=== PATIENT | female | born 1950 | race Caucasian/White ===

== ENCOUNTER 2016-05-29 20:02 | Inpatient (IN) ==
[2016-05-29] MEDS ORDERED: *HR* Heparin 5,000 UNIT/ML VIAL IVP PRN ×2 (22:59)
[2016-05-29] MEDS ORDERED: *HR* Promethazine 25 MG/ML VIAL IVP PRN (22:59)
[2016-05-29] MEDS ORDERED: *HR* Heparin 5,000 UNIT/ML VIAL IVP ONE (22:59)
[2016-05-29] MEDS ORDERED: Naloxone 0.4 MG/ML INJ IVP PRN (22:59)
[2016-05-29] MEDS ORDERED: Acetaminophen 325 MG TABLET PO PRN (22:59)
[2016-05-29] MEDS ORDERED: *HR* Morphine 2 MG/ML SYRINGE IVP PRN (22:59)
[2016-05-29] MEDS ORDERED: Heparin 25,000 UNIT/500 ML D5W 25,000 UNIT/500 ML MLS IVC SCH (23:00)
[2016-05-29 23:01] LABS: Basophils # 0.1 K/mcL (0.0-0.2); Basophils % 0.5 %; Eosinophils # 0.2 K/mcL (0.0-0.6); Eosinophils % 1.1 %; Hematocrit 35.7 % (35.3-44.9); Hemoglobin 11.7 g/dL (11.5-15.4); Immature Granulocytes % 0.2 % (0-4); Lymphocytes # 3.1 K/mcL (0.6-4.6); Lymphocytes % 23.6 %; Mean Corpuscular HGB Conc 32.8 g/dL (31.6-35.5); Mean Corpuscular Hemoglobin 26.2 pg (28.0-33.3); Mean Platelet Volume 9.2 fL (9.4-12.4); Monocytes % 7.7 %; Neutrophils # 8.9 K/mcL (1.6-8.9); Platelet Count 292 K/mcL (140-400); Red Blood Count 4.46 M/mcL (3.82-4.97); Red Cell Distribution Width 16.3 % (11.5-14.5); Segmented Neutrophils % 66.9 %
[2016-05-29 23:06] LABS: INR 1.1
[2016-05-29] MEDS ORDERED: *HR* Dextrose 50 % in Water (Syg) 50 ML SYRINGE IVP PRN (23:06)
[2016-05-29] MEDS ORDERED: D5% in Water 1,000 ML IV PRN (23:06)
[2016-05-29] MEDS ORDERED: Dextrose Gel 15 GM PO PRN ×2 (23:06)
[2016-05-29 23:12] LABS: Calcium 9.2 mg/dL (8.6-10.8); Potassium 4.2 mEq/L (3.5-4.5)
[2016-05-29] MEDS ORDERED: Nitroglycerin 25 MG/250 ML INFUS..BTL IVC SCH (23:15)
--- NOTE | 2016-05-29 23:16 | Internal Med History&Physical ---
Date of Encounter: 05/29/16 Time of Encounter: 22:20 Assessment and Plan (1) NSTEMI (non-ST elevated myocardial infarction) Current visit: Yes Status: Acute 1. Patient currently chest-pain free. 2. EKG much improved now compared to original EKG from [facility]. 3. I will continue patient on IV heparin gtt, Nitroglycerin gtt, aspirin, plavix, STATIN, BB (if BP and HR tolerate), and Morphine PRN. 4. Hold CHRISTIAN due to MATIAS. 5. I just discussed case with Interventional Cardiology (Dr. Hall ?sp), and he agrees with my plan of care. He recommends loading with aspirin and Plavix if not already done at [facility]. He recommends LHC in the morning. 6. Cardiology consulted. (2) IDDM (insulin dependent diabetes mellitus) Current visit: Yes Status: Chronic 1. Will keep npo for LHC. 2. Will use SSI for now and adjust insulin when medications verified and according to glucose levels. (3) Hypertension Current visit: Yes Status: Chronic 1. Will continue BB and adjust/resume home meds as appropriate. 2. Avoid CHRISTIAN for now due to MATIAS vs CKD. Qualifiers: Hypertension type: essential hypertension Qualified Code(s): I10 - Essential (primary) hypertension (4) DVT prophylaxis Current visit: Yes Status: Acute 1. On heparin drip. Internal Medicine - H&P: HPI Chief complaint: chest pain Admitted From: Hospital to Hospital Transfer Plans for Post Hospital Care: Home History of present illness: Ms. Finley is a 65 year old female who presents to [facility] in transfer from [facility] in [place]. She presented to ER there with complaints of chest pain and pressure which started earlier this afternoon. She was found to have a non-STEMI and request was made to transfer patient to [facility]. [facility] ER doctor contacted Dr. Pratt and requested patient transfer to [facility]. Upon arrival to the floor, I ordered some stat labs and EKG and saw the patient shortly after arrival. I reviewed her EKG and labs from [facility] and I was concerned about her presenting EKG at [facility]. On that EKG, she had some subtle ST elevation in leads II, III, and aVF and significant ST depression in leads V1 and V2 and V3. I was concerned about possible inferior STEMI. I then reviewed her stat EKG here, and her EKG here is unremarkable in appearance. In particular, there are no ST changes. She is currently chest pain-free and seems to have responded to treatment rendered at [facility]. Given that she is pain -free, I want to keep her nothing by mouth, continue heparin drip, start nitroglycerin drip, and order baseline cardiac medications including morphine for chest pain relief. Meanwhile, I will contact our artificial flowers dyer to discuss the case with him. I anticipate she will undergo left heart catheterization in the morning unless her condition worsens this evening. I explained this to patient and her brother, and they both voiced understanding and agreement with the plan. Cardiac risk factors include long-standing insulin-dependent diabetes, hypertension, and unknown family history. Patient was adopted, and she does not know her family history. Past Med Surg Social Fam HX - Past Medical History Attestation: Yes The following information was validated with the patient. Source: patient, old records reviewed Medical history: diabetes, hypertension Psychiatric history: no psych history - Past Surgical History Surgical History: hip replacement - Social History Smoking Status: Never smoker Alcohol use: none Drug use: none Current living situation: Home - Independent, Home Activity Level: Independent ambulation Recent Out of Country Travel Within the Last 8 Weeks: No - Family History Mother History Unknown: Yes Adopted: Yes Father History Unknown: Yes Adopted: Yes Internal Medicine - H&P: Meds Allergies No Known Allergies Allergy (Unverified 05/03/16 14:39) - Constitutional Constitutional: no chills, no fever(s), no night sweats - EENT Eyes: no blurry vision, no change in vision Ears: no ear pain, no tinnitus Nose, mouth and throat: no nasal congestion, no sinus pressure, no sore throat - Cardiovascular Cardiovascular ROS IM: chest pain, diaphoresis, dyspnea, no palpitations, no paroxysmal nocturnal dyspnea - Respiratory Respiratory: no cough, no hemoptysis, no chest congestion, no excessive phlegm production - Gastrointestinal Gastrointestinal: no abdominal pain, no diarrhea, no heartburn, no hematemesis, no hematochezia, no melena, no nausea, no vomiting - Genitourinary Genitourinary: no dysuria, no flank pain, no hematuria - Musculoskeletal Musculoskeletal ROS IM: no arthralgias, no back pain, no joint swelling - Integumentary Integumentary IM: no rash, no jaundice - Neurological Neurological ROS: no dizziness, no focal weakness, no frequent falls, no headache(s) - Psychiatric Psychiatric: no anxiety, no depression - Endocrine Endocrine IM: no cold intolerance, no heat intolerance, no polydipsia, no polyuria - Hematologic/Lymphatic Hematologic/Lymphatic: no easy bruising, no lymphadenopathy - Allergic/Immunologic Allergic/Immunologic: no wheezing, no GI upset with certain foods - Constitutional Vitals: Temp Pulse Resp BP Pulse Ox 97.4 F L 86 16 150/92 97 05/29/16 22:05 05/29/16 22:05 05/29/16 22:05 05/29/16 22:05 05/29/16 22:05 General appearance: Present: cooperative, A&O X 3, pleasant, no acute distress, answers questions appropriately - Head Head exam: Present: atraumatic, normal inspection - Expanded Head Exam Head exam expanded: Absent: abrasion, contusion, general tenderness - Eye Eye exam: Present: EOMI, normal appearance, PERRL. Absent: scleral icterus Pupils: Present: normal accommodation - ENT ENT exam: Present: mucous membranes dry, normal exam, normal oropharynx Additional comments: speech impediment - Neck Neck exam general surgery: Present: full ROM, supple. Absent: lymphadenopathy, nuchal rigidity, thyromegaly - Expanded Neck Exam Neck exam: Absent: carotid bruit - Respiratory Respiratory exam: Present: CTAB. Absent: accessory muscle use, chest wall tenderness, rales, respiratory distress, rhonchi, wheezes - Cardiovascular Cardiovascular exam: Present: RRR, +S1, +S2. Absent: diastolic murmur, JVD, systolic murmur - GI/Abdominal GI/Abdominal exam: Present: soft. Absent: guarding, hepatomegaly, mass, rebound , splenomegaly, tenderness - Extremities Exam Extremities exam: Present: full ROM, warm. Absent: calf tenderness, joint swelling, pedal edema, tenderness - Back Exam Back exam: Present: normal inspection. Absent: CVA tenderness (L), CVA tenderness (R) - Neurological Exam Neurological exam: Present: alert, CN II-XII intact, oriented X3, no focal deficits - Psychiatric Psychiatric exam: Present: normal affect, normal mood - Skin Skin exam: Present: dry, warm. Absent: petechiae, rash Internal Med - H&P Results - Labs CBC & Chem 7: 02/05/17 22:50 Labs: Short CBC 05/29/16 Range/Units 22:50 WBC 13.3 H D (4.3-11.1) K/mcL Hgb 11.7 (11.5-15.4) g/dL Hct 35.7 (35.3-44.9) % Plt Count 292 (140-400) K/mcL Neutrophils # 8.9 (1.6-8.9) K/mcL - EKG Data -: EKG Interpreted by Myself EKG shows normal: sinus rhythm - EKG Data Prior EKG available for review: yes When compared to previous EKG: there are significant changes EKG comments: 05/29/16 23:21 Initial EKG at [facility] showed some subtle ST elvation in II, III, and aVF with ST -T depression in V1-V3; repeat EKG here upon arrival showed no acute ST-T changes and was essentially normal other than borderline LAE. - VTE Reasons for not Prescribing Prophylaxis: Not indicated-Anticoagulated or INR therapeutic
[2016-05-29 23:25] LABS: Activated Partial Thrombo Time 138.2 Seconds (26.0-36.0)
[2016-05-29 23:28] LABS: Hemoglobin A1C 9.7 %
[2016-05-29 23:38] LABS: Heparin anti-factor XA UFH 0.74 IU/mL (0.30-0.70)
[2016-05-30] MEDS ORDERED: Aspirin 81 MG TAB.CHEW PO ONE (00:18)
[2016-05-30] MEDS: Insulin LISPRO 300 UNITS/3 ML VIAL SQ SCH ×4 (00:31→18:17)
[2016-05-30] MEDS: 0.9 % Sodium Chloride 1,000 ML IVC SCH ×3 (00:35→22:03)
[2016-05-30 01:19] LABS: Basophils # 0.1 K/mcL (0.0-0.2); Basophils % 0.5 %; Eosinophils # 0.2 K/mcL (0.0-0.6); Eosinophils % 1.4 %; Hematocrit 33.8 % (35.3-44.9); Hemoglobin 11.2 g/dL (11.5-15.4); Immature Granulocytes % 0.2 % (0-4); Lymphocytes # 3.2 K/mcL (0.6-4.6); Lymphocytes % 25.2 %; Mean Corpuscular HGB Conc 33.1 g/dL (31.6-35.5); Mean Corpuscular Hemoglobin 26.5 pg (28.0-33.3); Mean Corpuscular Volume 80.1 fL (83.0-100.0); Mean Platelet Volume 9.4 fL (9.4-12.4); Monocytes # 0.8 K/mcL (0.0-1.3); Monocytes % 6.6 %; Neutrophils # 8.4 K/mcL (1.6-8.9); Platelet Count 267 K/mcL (140-400); Red Blood Count 4.22 M/mcL (3.82-4.97); Red Cell Distribution Width 16.6 % (11.5-14.5); Segmented Neutrophils % 66.1 %
[2016-05-30 01:25] LABS: INR 1.1; Prothrombin Time 11.8 Seconds (9.4-12.1)
[2016-05-30 01:36] LABS: Albumin 3.1 g/dL (3.5-5.0); Bilirubin,Total 0.5 mg/dL (0.2-1.2); Calcium 9.1 mg/dL (8.6-10.8); Chol/HDL Ratio 2.5 (0-4.9); Magnesium 1.2 mg/dL (1.6-2.6); Total Protein 6.1 g/dL (6.0-8.3)
[2016-05-30 01:41] LABS: Activated Partial Thrombo Time 122.9 Seconds (26.0-36.0)
[2016-05-30 01:47] LABS: Heparin anti-factor XA UFH 0.63 IU/mL (0.30-0.70)
[2016-05-30] MEDS: Insulin DETEMIR 100 UNIT/ML X5UNITS SQ SCH ×2 (02:26→22:03)
[2016-05-30] MEDS ORDERED: Magnesium Sulfate 2 GM in D5% in Water 100 ML IVPB ONE (02:53)
[2016-05-30] MEDS: Aspirin Enteric Coated 81 MG Tablet PO SCH (08:54)
--- NOTE | 2016-05-30 09:26 | Cardiology Consult Note ---
Date of Encounter: 05/30/16 Time of Encounter: 08:30 Assessment and Plan (1) NSTEMI (non-ST elevated myocardial infarction) Current Visit: Yes Status: Acute Per Cardiology: -Patient with elevated troponin of 6.16 and 7.8. Patient with bilateral shoulder , jaw, and chest pain. Currently chest pain free. Patient currently on nitroglycerin drip at 5mcg/min and heparin drip titrated to PTT. -Patient currently on asa, plavix, beta bryant, statin, heparin drip, and nitro drip. -Echocardiogram pending. No previous history of CAD or ischemic evaluation. -Plan for cardiac catheterization today. Discussed cath with patient and brother. All questions answered. Patient and brother agreeable for cardiac catheterization. -Further recommendations once cardiac catheterization complete. (2) Hypertension Current Visit: Yes Status: Chronic Per Cardiology -Patient with chronic hypertension. Patient states home medication is HCTZ. States compliance with home medications. -Patient currently on beta-bryant. BPs running 110-130s this admission. -More recommendations once cardiac catheterization complete. Qualifiers: Hypertension type: essential hypertension Qualified Code(s): I10 - Essential (primary) hypertension Discussion w patient/family: The assessment and plan as outlined above was discussed with the patient and/or family members who expressed understanding and agreement. All questions were answered. Thank you for involving us in the care of your patient. Please call with any questions. History of Present Illness Consult date: 05/30/16 Requesting physician: Evans Stoll Consult reason: NSTEMI Chief complaint: Chest pain History of present illness: Ms. Finley is a 65 year old female who was at home at rest when she experienced sudden onset of bilateral shoulder blade, jaw, and chest pain. Patient states her friend took her to the emergency room at [facility]. Patient states ER gave her a medication under her tongue that relieved pain. Patient states nothing made the pain worse. States pain was not worsened by walking to car or walking into the emergency room. Patient had elevated troponin in ER at [facility] and per patient and family request she was transferred here to [place]. Patient denies shoulder blade, chest,or jaw pain since admission to [place]. Past Med Surg Social Fam HX - Past Medical History Medical history: diabetes, hypertension Psychiatric history: no psych history - Past Surgical History Surgical History: hip replacement - Social History Smoking Status: Never smoker Alcohol use: none Drug use: none - Family History Mother History Unknown: Yes Adopted: Yes Father History Unknown: Yes Adopted: Yes Medications and Allergies Aspirin Enteric Coated [Aspirin EC] 81 mg PO DAILY 05/30/16 [History] Insulin ASPART [Novolog Flexpen] 4 unit SQ HS 05/30/16 [History] Insulin ASPART [Novolog Flexpen] 4 units SQ TIDAC 05/30/16 [History] Insulin Glargine,Hum.rec.anlog [Lantus Solostar] 14 unit SQ HS 05/30/16 [History ] Levothyroxine [Levothyroxine Sodium] 137 mcg PO DAILY 05/30/16 [History] Simvastatin [Zocor] 20 mg PO QPM 05/30/16 [History] Triamterene/HCTZ 37.5/25mg [Dyazide] 1 tab PO DAILY 05/30/16 [History] Allergies Penicillins Allergy (Verified 05/30/16 08:11) Rash All Systems Review: A 10-system review of systems was performed and is negative for pertinent findings except as documented above in the HPI. - Cardiovascular Cardiovascular: chest pain at rest, radiating jaw, neck or arm pain Physical Examination Vital Signs, Last 4 Hours Temp Pulse Resp BP Pulse Ox 05/30/16 08:00 97.5 F L 86 20 139/83 97 General: Conversant, No Apparent Distress HEENT: Atraumatic, Normocephaly, Mucus Membranes Moist Neck: No JVD Cardiac: Reg Rate and Rhythm, Normal S1 and S2 Lungs: Normal Breath Sounds Neuro: Alert and responsive Abdomen: Soft Skin: No rashes noted on visualized skin Musculoskeletal: No Chest Wall Tenderness Extremities: No Clubbing, No Cyanosis, Normal Pulses, Other (mild non-pitting edema noted to bilateral lower extremities. ) Results 05/30/16 01:08 05/30/16 01:08 Lab Results 05/29/16 05/29/16 05/29/16 22:50 22:50 22:50 WBC 13.3 H D Hgb 11.7 Hct 35.7 Plt Count 292 INR APTT Sodium 137 Potassium 4.2 Chloride 106 Carbon Dioxide 20 BUN 38 H Creatinine 1.34 H Glucose 370 H Calcium 9.2 Magnesium Total Bilirubin AST ALT Alkaline Phosphatase Troponin I 6.16 H* 05/29/16 05/30/16 05/30/16 22:50 01:08 01:08 WBC 12.7 H Hgb 11.2 L Hct 33.8 L Plt Count 267 INR 1.1 1.1 APTT 138.2 H* 122.9 H* Sodium Potassium Chloride Carbon Dioxide BUN Creatinine Glucose Calcium Magnesium Total Bilirubin AST ALT Alkaline Phosphatase Troponin I 05/30/16 05/30/16 01:08 01:08 WBC Hgb Hct Plt Count INR APTT Sodium 136 Potassium 4.0 Chloride 105 Carbon Dioxide 21 BUN 37 H Creatinine 1.42 H Glucose 518 H* Calcium 9.1 Magnesium 1.2 L Total Bilirubin 0.5 AST 53 H ALT 20 Alkaline Phosphatase 87 Troponin I 7.83 H* - Imaging and Cardiology Chest Xray: report reviewed Echo: pending Cardiac cath: pending - EKG Interpretation EKG results cardiology: normal ECG, sinus rhythm, other (Reviewed ECG from [facility]. Mild ST depression in leads V1 and V2.) Consult Discharge Plan - Plan Referrals: Shoshana Eng MD [Primary Care Provider] -
[2016-05-30] MEDS ORDERED: Heparin 1,000 UNITS/500 mL NS 500 ML ONE (10:38)
[2016-05-30] MEDS ORDERED: Nitroglycerin 1,000 MCG/10 ML VIAL IV ONE (10:38)
[2016-05-30] MEDS ORDERED: 0.9 % Sodium Chloride 1,000 ML ONE ×2 (10:38→11:38)
[2016-05-30] MEDS ORDERED: *HR* Heparin 10,000 UNIT/10 ML VIAL ONE (10:38)
[2016-05-30] MEDS ORDERED: *HR* Midazolam HCl 2 MG/2 ML VIAL ONE (11:37)
[2016-05-30] MEDS ORDERED: *HR* FentaNYL (PF) 100 MCG/2 ML VIAL ONE (11:37)
--- NOTE | 2016-05-30 11:49 | Pre-Sedation Evaluation ---
Pre-sedation evaluation - Pre-sedation checklist Date of procedure: 05/30/16 Procedure: heart cath Recent Vitals: Last Vital Signs Temp 97.5 F L 05/30/16 08:00 Pulse 68 05/30/16 11:07 Resp 16 05/30/16 11:07 BP 134/78 05/30/16 11:07 Pulse Ox 100 05/30/16 11:07 H&P (including ROS) documented in medical record: Yes Previous reaction to sedatives/anesthetics: No Dietary Status: NPO after Midnight Dentition: No loose teeth or bridges Possible difficult airway: No ASA Classification *see protocol: CLASS III-Severe systemic disease Plan of Care: Pt appropriate candidate for procedure/moderate/conscious sedation , Risks/benefits of procedure/sedation discussed w/ patient/family, If not NPO; Risk of intake outweiged by necessity to perform procedure
[2016-05-30] MEDS ORDERED: *HR* Bivalirudin 250 MG VIAL IVC ONE (12:06)
[2016-05-30] MEDS ORDERED: Ondansetron 4 MG/2 ML VIAL IVP PRN (12:22)
[2016-05-30] MEDS ORDERED: Nitroglycerin 0.4 MG TAB.SUBL SL PRN (12:22)
--- NOTE | 2016-05-30 12:45 | Invasive Diagnostic Lab Proc ---
Name: Casi Finley September Date of Study: 05/30/2016 Date: 1950 Ht: 65.0in Medical Record#: [id number] Age: 65 Wt: 160.94lb Gender: Female BSA: 1.8 Order #: [id number] BMI: 26.81 Physicians Procedure Physician: Dez Giraldo MD Referring MD: Referring MD: Staff Name Position Time In NewZuleyma RN Monitor 11:51 AM Kaushal Molina RN Yard Inspector 11:51 AM Yanelis Mendoza RT Scrub 11:51 AM Snow Urias RN Nurse 11:53 AM Indications Indication Non-Stemi Procedures Performed Procedure L HRT ARTERY/VENTRICLE ANGIO Pre-Procedure Checklist Informed consent is complete signed and on chart. H\\T\\P is on chart. ID band is on and ID verified with patient. Patient NPO for procedure The procedure was described for the patient and questions were answered. Blood Pressure: 157/85 ECG is on chart. Rhythm: NSR Plan of Care Patient will tolerate the procedure without complications. Adequate level of comfort will be maintained. Hemodynamics will remain stable Patient will recover from procedure without complications. Respiratory function will be maintained. Cardiac rhythm will remain stable. Patient temperature will be maintained. Patient and/or family have verbalized understanding of the procedure. Patient Education Chief Complaint/Reason for Test: Cardiac Cath Developmental Category: Geriatric (65+ years) Developmentally Appropriate for Age: Yes Learning Barriers: None Education Needs: Procedure Education Method: Verbal Information Taught: Cardiac Cath Educational Evaluation: Able to repeat information Intravenous Access Time IV Size Location DC'd Fluid/Drip Rate Units RN 12:03 PM 20g 1 04/27" Patent On Arrival 0.9NaCl 25 ml/hr Kaushal Molina RN Allergies No Known Allergies Penicillin Penicillins Vital Signs Time BP (mmHg) HR (bpm) O2 Sat. RR (bpm) LOC / % 5 = Fully awake and oriented or at pre-proc level 11:52 AM / % 5 = Fully awake and oriented or at pre-proc level 11:52 AM / % 4 = Oriented but drowsy 12:07 PM / % 4 = Oriented but drowsy 11:55 AM 157 / 85 73 100 % 20 12:00 PM 128 / 73 71 100 % 17 12:05 PM 139 / 80 73 100 % 22 12:10 PM 132 / 80 78 100 % 12 12:15 PM 122 / 80 76 100 % 15 12:20 PM 153 / 89 81 100 % 15 Procedural Medications Time Medication Dose Units Method Given By 11:51 AM Oxygen 2 L/min nasal cannula Kaushal Molina RN 11:58 AM Versed 1 mg Intravenous Kaushal Molina RN 11:58 AM Fentanyl 50 mcg Intravenous Kaushal Molina RN 12:02 PM Lidocaine 2% 18 ml Subcutaneous Dez Giraldo MD 12:10 PM Nitroglycerin 200 mcg Intracoronary Dez Giraldo MD 12:11 PM Angiomax 0.75mg/kg bolus: 11 ml Intravenous Kaushal Molina RN 12:11 PM Angiomax 1.75mg/kg/hr: 26 ml Intravenous Kaushal Molina RN 12:25 PM Plavix 300 mg Orally Kaushal Molina RN ASA Classification: CLASS II- Mild systemic disease (i.e. well-controlled diabetes, hypertension, asthma, cigarette smoking) Bobo Score Preprocedure Postprocedure Activity 2- Moves 4 extremities sustained head lift Activity 2- Moves 4 extremities sustained head lift Circulation 2- SBP +/= 20 points of pre-anesthetic level Circulation 2- SBP +/= 20 points of pre-anesthetic level Consciousness 2- Awake and alert oriented x 3 Consciousness 2- Awake and alert oriented x 3 O2 Saturation 2- Able to maintain O2 satruation of 92% on room air O2 Saturation 2- Able to maintain O2 satruation of 92% on room air Respiratory 2- Able to deep breathe and cough well Respiratory 2- Able to deep breathe and cough well Total Score 10 Total Score 10 Contrast Agent: Isovue Diagnostic Contrast: 125 ml Total Contrast: 125 ml Fluoro Dose: 3215 mGy Procedure Log Time Note Enter By 11:32 AM CathStat 11:51 AM Pt arrived to animal laboratory helper 2 at 11:50 scoates 11:51 AM Zuleyma Wolff RN Position: Monitor Time in: 11:51 scoates 11:51 AM Kaushal Molina RN Position: Yard Inspector Time in: 11:51 scoates 11:51 AM Patient charges- Angio tray pack, Navilyst 3mm J, Pulse Oximetry and ACIST tubing and transducer scoates 11:51 AM Yanelis Mendoza RT Position: Scrub Time in: 11:51 scoates 11:51 AM Case Delayed No scoates 11:51 AM ASA Class CLASS II- Mild systemic disease (i.e. well-controlled diabetes, hypertension, asthma, cigarette smoking) scoates 11:51 AM Physician arrived 11:51 scoates 11:51 AM Meet and greet completed scoates 11:51 AM Sign in performed according to hospital policy. scoates 11:51 AM Procedure start : scoates 11: AM Time: : Oxygen on at 2 L/min per nasal cannula by Kaushal Molina RN scoates : AM Time: : Patient comfortable and pain free: Yes scoates : AM Time: :LOC: 5 = Fully awake and oriented or at pre-proc level scoates 11: AM Clinical Presentation: Non-STEMI scoates 11:53 AM Hair removed from procedure site in procedure lab using clippers. Bilateral groin prepped with Chloraprep by Snow Urias RN then patient draped. Skin intact. scoates 11:53 AM Snow Urias RN Position: Nurse Time in: :53 scoates 11:54 AM Vitals capture started with the following parameters, Patient=Adult, Interval=5 min, Initial Sfvpsjra=029 mmHg, Deflation Rate=5 mmHg, Cuff placed on Left Leg 11:55 AM HR=73 bpm, PMXU=929/85 mmhg, GyN3=331.0 %, Resp=20 B/min, Comment=nsr 11:58 AM Time: :58 Versed 1 mg Intravenous Given by Kaushal Molina RN scoates 11:58 AM Time: 11:58 Fentanyl 50 mcg Intravenous Given by Kaushal Molina RN scoates 12:00 PM HR=71 bpm, DQIW=514/73 mmhg, EnG7=811.0 %, Resp=17 B/min, Comment=nsr 12:02 PM Time out performed according to hospital policy scoates 12:02 PM Time: 12:02 18 ml Lidocaine 2% to right groin Subcutaneous Given by Dez Giraldo MD scoates 12:03 PM Access obtained by percutaneous puncture. 6Fr 11cm Terumo Destination sheath placed in right Femoral artery. [id number] scoates 12:04 PM 5Fr FL 4 catheter inserted over the wire DNC scoates 12:05 PM HR=73 bpm, SEVE=628/80 mmhg, SiL6=887.0 %, Resp=22 B/min, Comment=nsr 12:05 PM Pressure channel 1 zero failed. 12:05 PM Pressure channel 1 zeroed. 12:05 PM Catheter removed scoates 12:05 PM 5Fr FR 4 catheter inserted over the wire DNC scoates 12:05 PM Lesion found in Mid LAD. Pre Stenosis: 30 Pre SHRUTI Flow: scoates 12:05 PM Lesion found in Mid Circumflex. Pre Stenosis: 99 Pre SHRUTI Flow: scoates 12:06 PM Recorded Pressure: Ao, HR=77, Condition=Condition 1 (Aorta) Ao 118/78/97 12:07 PM Coronary Dominance: right scoates 12:07 PM RCA angiography performed in multiple views. scoates 12:07 PM Catheter removed scoates 12:07 PM 5Fr Pigtail catheter inserted over the wire DNC scoates 12:07 PM Time: 11:52 Patient comfortable and pain free: Yes scoates 12:07 PM Time: 11:52LOC: 4 = Oriented but drowsy scoates 12:08 PM Recorded Pressure: LV, HR=78, Condition=Condition 1 (Left Ventricle) LV 138/-4/12 12:08 PM Catheter selectively placed in left ventricle scoates 12:08 PM Bolus angiogram of left Ventricle complete: 8 ml/sec for a total of 24 mls scoates 12:09 PM PCI Status Urgent scoates 12:09 PM PCI Indication: PCI for high risk Non-STEMI or unstable angina scoates 12:09 PM Catheter removed scoates 12:09 PM 6Fr XB3.5 Cordis guide catheter was used to cannulate the PCI vessel successfully. reused? No scoates 12:10 PM HR=78 bpm, IJNE=827/80 mmhg, OrG1=649.0 %, Resp=12 B/min, Comment=nsr 12:10 PM .014 Prowater 180cm guide wire across target lesion- successful. reused? No scoates 12:10 PM Inflation device was opened. scoates 12:10 PM Time: 12:10 Nitroglycerin 200 mcg Intracoronary Given by Dez Giraldo MD scoates 12:11 PM Time: 12:11 Angiomax 0.75mg/kg bolus: 11 ml Intravenous Given by Kaushal Molina RN Whitfield pump scoates 12:11 PM Recorded Pressure: Ao, HR=82, Condition=Condition 1 (Aorta) Ao 110/65/85 12:11 PM Time: 12:11 Angiomax 1.75mg/kg/hr: 26 ml Intravenous Given by Kaushal Molina RN Whitfield pump scoates 12:11 PM 2.5 mm x 8 mm Emerge Monorail balloon across target lesion- successful. reused? No scoates 12:11 PM Recorded Pressure: Ao, HR=81, Condition=Condition 1 (Aorta) Ao 114/66/88 12:13 PM Recorded Pressure: Ao, HR=78, Condition=Condition 1 (Aorta) Ao 116/72/92 12:13 PM Balloon inflated @ 12 rita for 12 seconds scoates 12:14 PM Recorded Pressure: Ao, HR=78, Condition=Condition 1 (Aorta) Ao 115/67/88 12:15 PM HR=76 bpm, GMPR=256/80 mmhg, FdH0=604 %, Resp=15 B/min 12:15 PM Balloon catheter removed intact. scoates 12:15 PM 2.75mm x 16mm Synergy drug-eluting stent across target lesion- successful Lot #[id number] scoates 12:16 PM Stent deployed @ 18 rita for 10 seconds scoates 12:17 PM Stent delivery system removed intact. scoates 12:18 PM Guide wire removed intact. scoates 12:18 PM Guide catheter removed intact. scoates 12:19 PM Lesion found in Mid LAD. Pre Stenosis: 30 Pre SHRUTI Flow: scoates 12:19 PM Coronary Dominance: right scoates 12:20 PM HR=81 bpm, RLKN=806/89 mmhg, FkO3=903.0 %, Resp=15 B/min, Comment=nsr 12:20 PM Procedure completed at 12:20 scoates 12:22 PM Sign out completed: Radiation Dose 3125 mGy Fluoro Time:2.7m Isovue 370 - 200ml contrast 125 ml given by Dez Giraldo MD. Complications: NoneCardiac Rehab Consult needed: YesConfirmed administered medications: Yes scoates 12:22 PM Isovue 370 - 200ml,1 Bottle(s) used. scoates 12:24 PM Arterial sheath pulled, Perclose closure device used and was Successful [id number] S/N. scoates 12:24 PM Time: 12:07 Patient comfortable and pain free: Yes scoates 12:24 PM Time: 12:07LOC: 4 = Oriented but drowsy scoates 12:25 PM Post ECG NSR scoates 12:25 PM Post Blood Pressure 132/80 scoates 12:25 PM Time: 12:25 Plavix 300 mg Orally Given by Kaushal Molina RN scoates 12:28 PM 12:28 Post Pulses Bilateral DP \\T\\ PT 1+ scoates 12:28 PM Information taught Cardiac Cath and PCI scoates 12:28 PM Education needs Procedure, Plan of Care, and Responsibilities of Patient in Care scoates 12:28 PM Learning barriers :None scoates 12:28 PM Education Methods Verbal scoates 12:28 PM Education evaluation Able to repeat information scoates 12:28 PM Site status No bleeding/hematoma - Rt Groin as reported by Yanelis Mendoza RT at 12:28 scoates 12:29 PM Opsite applied scoates 12:29 PM Plavix, Effient or Brilinta given Yes scoates 12:29 PM Delay to floor No scoates 12:29 PM Family placed in consult room. scoates 12:29 PM Complications: None scoates 12:30 PM Isovue 370 - 200ml contrast 125 ml given by Dez Giraldo MD. scoates 12:30 PM Radiation Dose 3215 mGy scoates 12:33 PM Report given to 2NE nurse RN Pt taken to E Room #24. 12:32 scoates 12:39 PM Patient out of room: 12:39 scoates 12:39 PM Family placed in consult room. scoates Complications Complication None None Hemodynamics Pressures Site Systolic/A Wave Diastolic/V Wave Mean AO 118 78 97 LV 138 -4 12 AO 110 65 85 AO 114 66 88 AO 116 72 92 AO 115 67 88 Post Procedure Information Blood Pressure: 132/80 mmHg Rhythm: NSR Post procedural instructions were given Closure Device Time Device Success/Fail 05/30/2016 12:27:00 PM Perclose ProGlide Successful Site Checks Time Location Status Staff Sheath In? Note 12:28 PM Rt Groin No bleeding/hematoma Yanelis Mendoza RT Pulses Time Site Pre-Procedure Post-Procedure Note 05/30/2016 12:03:00 PM Bilateral DP \\T\\ PT 1+ 12:28:00 PM Bilateral DP \\T\\ PT 1+ Updated by Zuleyma Puckett RN on 05/30/2016 12:41:55 PM electronically signed on 05/30/2016 12:42:35 PM with status of Final
--- NOTE | 2016-05-30 12:46 | Invasive Diagnostic Lab ---
Name: Casi Finley September Date of Study: 05/30/2016 Date: 1950 Ht: 165.0 cm /65.0 in Medical Record#: [id number] Age: 65 Wt: 73. kg / 160.94 lb Account/Order#: [id number] Gender: Female BSA: 1.8 Order #: [id number] Fluoro Dose: 3215 mGy BMI: 26.81 Procedure Physician: Dez Giraldo MD Referring MD: Referring MD: Procedures Performed: LEFT HEART CATH Indications: Non-Stemi Impressions: There is severe one vessel coronary artery disease. The left ventricle is normal and has normal contractility EF 60% Patient had successful PTCA/Bare Metal Stent placement in the mid Circ. Recommendations: Optimal medical therapy of patient's disease. Aggressive risk factor modification. Patient being referred for cardiac rehab. History/Risk Factors: CP Diabetes Hypertension Procedure Access obtained in the right Femoral artery by percutaneous puncture Patient had successful PTCA/Bare Metal Stent placement in the mid Circ. Complications: None, None Contrast: Isovue 125ml Closure Device: Perclose ProGlide Hemodynamics: Pressures Site Systolic/ A Wave Diastolic/ V Wave End Diastolic/ Mean HR AO 118 78 97 77 LV 138 -4 12 78 AO 110 65 85 82 AO 114 66 88 81 AO 116 72 92 78 AO 115 67 88 78 LV Ventriculography Ejection Method: LV Gram Ejection Fraction: 60% Wall Motion: LOCKETT Anterobasal Normal Anterolateral Normal Apical: Normal Inferoapical Normal Inferobasal Normal Coronary Dominance: right Lesion Findings/Interventions * Left Main Coronary Artery The LMCA is angiographically free of disease. * Left Anterior Descending There is a 30% stenosis in the Mid LAD. There is a 30% stenosis in the Mid LAD. * Circumflex There is a 16 mm long, 99% stenosis in the Mid Circumflex. The lesion has a SHRUTI flow of 3. An intervention was performed on the Mid Circumflex with a final stenosis of 0%. There were no lesion complications. The final SHRUTI flow was 3. * Right Coronary Artery The RCA is angiographically free of disease. Interventional Device(s) Vessel Segment Type Name Diameter (mm) Length (mm) Mid Circumflex Balloon Emerge Monorail 2.5 8 Mid Circumflex Drug Eluting Stent Synergy 2.75 16 Updated by Zuleyma Puckett RN on 05/30/2016 12:41:29 PM Dez Giraldo MD electronically signed on 05/30/2016 12:42:06 PM with status of Final
--- NOTE | 2016-05-30 17:40 | Electrocardiograph Report ---
[place] [address] Test Date: 2016-05-29 Pat Name: Casi Finley Department: 111 Room: 2N4 Gender: F Half Section Ironer: : 1950 Requested By: Order Number: [id number] Reading MD: Crissy Rivera Measurements Intervals [place] Rate: 85 P: 61 WA: 147 QRS: 83 QRSD: 82 T: 73 QT: 368 QTc: 411 Interpretive Statements SINUS RHYTHM POSSIBLE LEFT ATRIAL ENLARGEMENT Electronically Signed On 05-30-2016 17:39:01 EST by Crissy Rivera
--- NOTE | 2016-05-30 18:22 | Internal Med Progress Note ---
Date of Encounter: 05/30/16 Time of Encounter: 18:19 - Assessment and plan (1) NSTEMI (non-ST elevated myocardial infarction) Current Visit: Yes Status: Acute Assessment and plan: Admitted with chest pain persistently elevated and rising trend of troponin on heparin drip and ASA/BB/Statin cardiology on board and she is scheduled for cath (2) Hypertension Current Visit: Yes Status: Chronic Assessment and plan: presently well controlled and will continue home medications. Qualifiers: Hypertension type: essential hypertension Qualified Code(s): I10 - Essential (primary) hypertension (3) IDDM (insulin dependent diabetes mellitus) Current Visit: Yes Status: Chronic Assessment and plan: ACHS and will monitor sugar with insulin during hospital stay. (4) DVT prophylaxis Current Visit: Yes Status: Acute Assessment and plan: heparin - Subjective Interval history: seen and examined. has occasional chest pain. denies SOB, Nausea, Vomiting and diarrhea. - Constitutional Vitals: Temp Pulse Resp BP Pulse Ox 97.7 F 94 18 150/67 97 05/30/16 16:58 05/30/16 15:00 05/30/16 15:00 05/30/16 15:00 05/30/16 15:00 General appearance: Present: cooperative, A&O X 3, pleasant, no acute distress, answers questions appropriately - Head Head exam: Present: atraumatic, normocephalic - Eye Eye exam: Present: PERRL, conjuntiva pink, sclera anicteric Pupils: Present: PERRL - Neck Neck exam general surgery: Present: supple, trachea midline. Absent: lymphadenopathy - Respiratory Respiratory exam: Present: CTAB. Absent: accessory muscle use, rales, rhonchi, wheezes - Cardiovascular Cardiovascular exam: Present: RRR, +S1, +S2. Absent: diastolic murmur, gallop, rubs, systolic murmur - GI/Abdominal GI/Abdominal exam: Present: normal bowel sounds, soft, no peritoneal signs. Absent: distended, tenderness - Extremities Exam Extremities exam: Present: warm, radial pulses palpable and symetrical. Absent : calf tenderness, cyanotic, pedal edema - Neurological Exam Neurological exam: Present: CN II-XII intact, oriented X3, no focal deficits. Absent: pronater drift, facial droop, speech deficit - Skin Skin exam: Present: dry, intact Internal Medicine: Result - Labs CBC & Chem 7: 05/30/16 01:08 05/30/16 01:08 Labs: Short CBC 05/29/16 05/30/16 Range/Units 22:50 01:08 WBC 13.3 H D 12.7 H (4.3-11.1) K/mcL Hgb 11.7 11.2 L (11.5-15.4) g/dL Hct 35.7 33.8 L (35.3-44.9) % Plt Count 292 267 (140-400) K/mcL Neutrophils # 8.9 8.4 (1.6-8.9) K/mcL BMP 05/29/16 05/30/16 22:50 01:08 Sodium 137 136 Potassium 4.2 4.0 Chloride 106 105 Carbon Dioxide 20 21 BUN 38 H 37 H Creatinine 1.34 H 1.42 H Glucose 370 H 518 H* Calcium 9.2 9.1 Cardiac Enzymes 05/29/16 05/30/16 05/30/16 Range/Units 22:50 01:08 09:36 Troponin I 6.16 H* 7.83 H* 14.12 H* (0-0.03) ng/mL Liver Function 05/30/16 Range/Units 01:08 Total Bilirubin 0.5 (0.2-1.2) mg/dL AST 53 H (5-34) Units/L ALT 20 (0-55) Units/L Alkaline Phosphatase 87 (38-126) Units/L Albumin 3.1 L (3.5-5.0) g/dL - ABG Interpretation ABG results: PT/INR, D-dimer PT 11.8 Seconds (9.4-12.1) 05/30/16 01:08 - Impressions Impressions Chest X-Ray 05/30/16 00:18 IMPRESSION: Negative portable chest. D/ / Gary Han MD / Gary Han MD Interpreting Provider: Gary Han MD - VTE Reasons for not Prescribing Prophylaxis: Not indicated-Anticoagulated or INR therapeutic Consult Discharge Plan - Plan Referrals: Shoshana Eng MD [Primary Care Provider] -
[2016-05-31] MEDS: Insulin LISPRO 300 UNITS/3 ML VIAL SQ SCH ×3 (00:09→12:43)
[2016-05-31] MEDS: 0.9 % Sodium Chloride 1,000 ML IVC SCH (05:59)
[2016-05-31 06:50] LABS: Basophils # 0.1 K/mcL (0.0-0.2); Basophils % 0.7 %; Eosinophils # 0.4 K/mcL (0.0-0.6); Eosinophils % 4.4 %; Hematocrit 32.2 % (35.3-44.9); Hemoglobin 10.5 g/dL (11.5-15.4); Immature Granulocytes % 0.2 % (0-4); Lymphocytes # 2.9 K/mcL (0.6-4.6); Lymphocytes % 31.8 %; Mean Corpuscular HGB Conc 32.6 g/dL (31.6-35.5); Mean Corpuscular Hemoglobin 26.6 pg (28.0-33.3); Mean Corpuscular Volume 81.7 fL (83.0-100.0); Mean Platelet Volume 9.7 fL (9.4-12.4); Monocytes # 1.1 K/mcL (0.0-1.3); Neutrophils # 4.6 K/mcL (1.6-8.9); Platelet Count 269 K/mcL (140-400); Red Blood Count 3.94 M/mcL (3.82-4.97); Red Cell Distribution Width 16.9 % (11.5-14.5); Segmented Neutrophils % 50.9 %
[2016-05-31 07:05] LABS: BUN/Creatinine Ratio 26 (6-26); Calcium 8.7 mg/dL (8.6-10.8); Carbon Dioxide 22 mEq/L (19-29); Chloride 111 mEq/L (98-109); Glucose 60 mg/dL (70-99); Osmolality,Calculated 298 (280-300); Potassium 3.7 mEq/L (3.5-4.5); eGFR For African Americans > 60 (> 60); eGFR For Non-African Americans > 60 (> 60)
[2016-05-31 07:07] LABS: Blood Urea Nitrogen 24 mg/dL (7-20); Sodium 143 mEq/L (136-145)
[2016-05-31 08:03] VITALS: BP 126/77
--- NOTE | 2016-05-31 08:44 | Cardiology Progress Note ---
Date of Encounter: 05/31/16 Time of Encounter: 08:15 Assessment and Plan (1) NSTEMI (non-ST elevated myocardial infarction) Current Visit: Yes Status: Acute Per Cardiology: -Patient with elevated troponin of 6.16 and 7.8. Patient with bilateral shoulder , jaw, and chest pain. Currently chest pain free. Patient currently on nitroglycerin drip at 10mcg/min. -Patient currently on asa, plavix, beta bryant, statin, cozaar, and nitro drip. -Cardiac catheterization 05/30/16 with EF 60%, 30% stenosis mid LAD, 99% mid circumflex with successful drug eluding stent placed. -Wean nitro drip to off. Recommend discharging patient with sublingual nitroglycerin. -Continue asa, plavix, beta bryant, statin. Discussed at length with patient regarding importance of continuing asa and plavix for at leasr one year. Patient states understanding. Groin managment instructions given to patient. Patient states understanding. -Follow up with cardiology in 1-2 weeks (already coordinated with [place] [facility]). (2) Hypertension Current Visit: Yes Status: Chronic Per Cardiology -Patient with chronic hypertension. Patient states home medication is HCTZ. States compliance with home medications. -Patient currently on beta-bryant, ARB. BPs running 110-120s. -BPs currently controlled. Continue current regimen. Qualifiers: Hypertension type: essential hypertension Qualified Code(s): I10 - Essential (primary) hypertension Discussion w patient/family: The assessment and plan as outlined above was discussed with the patient who expressed understanding and agreement. All questions were answered. Thank you for involving us in the care of your patient. Please call with any questions. Cardiology to sign off and follow up as outpatient. Re-consult as needed. Subjective Principal diagnosis: Chest pain Objective Vital Signs, Last 4 Hours Temp Pulse Resp BP Pulse Ox 05/31/16 08:00 98.5 F 88 18 126/77 97 05/31/16 05:00 97.5 F L 81 16 121/74 96 General: Conversant, No Apparent Distress HEENT: Atraumatic, Normocephaly, Mucus Membranes Moist Neck: No JVD Cardiac: Reg Rate and Rhythm, Normal S1 and S2, No Murmur Lungs: Normal Breath Sounds Neuro: Alert and responsive Abdomen: Soft, Non-Tender Skin: No rashes noted on visualized skin, Other (Right groin access site without ecchymosis or hematoma. ) Musculoskeletal: No Chest Wall Tenderness Extremities: No Clubbing, No Cyanosis, No Edema, Normal Pulses Results 05/31/16 05:47 05/31/16 05:47 Lab Results 05/30/16 05/30/16 05/31/16 09:36 09:36 05:47 WBC 9.0 Hgb 10.5 L Hct 32.2 L Plt Count 269 APTT 51.8 H D Sodium Potassium Chloride Carbon Dioxide BUN Creatinine Glucose Calcium Troponin I 14.12 H* 05/31/16 05:47 WBC Hgb Hct Plt Count APTT Sodium 143 D Potassium 3.7 Chloride 111 H Carbon Dioxide 22 BUN 24 H D Creatinine 0.91 Glucose 60 L Calcium 8.7 Troponin I - Imaging and Cardiology Chest Xray: report reviewed Cardiac cath: report reviewed - EKG Interpretation EKG results cardiology: personally reviewed, normal ECG, sinus rhythm, other ( [facility], sinus rythym, no significant events noted.) - VTE Reasons for not Prescribing Prophylaxis: Not indicated-Anticoagulated or INR therapeutic Consult Discharge Plan - Plan Referrals: Shoshana Eng MD [Primary Care Provider] -
[2016-05-31] MEDS: Aspirin Enteric Coated 81 MG Tablet PO SCH (09:29)
--- NOTE | 2016-05-31 10:43 | ECHO - Doppler Report ---
Echocardiogram Name: Casi Finley Date of Study: 05/30/2016 Date: 1950 Ht: 65.0 in Medical Record#: [id number] Age: 65 Wt: 160.0 lb Gender: Female BSA: 1.8 Order #: [id number] Location: [facility] Room #: [id number] Reading Physician: Crissy Rivera DO [employer] Equipment Tender: Missy Clemons RDCS Ordering Physician: Sohail Farfan MD Primary Physician: Shoshana Eng MD Indications: NSTEMI Impressions: LVEF 60%. Normal left ventricular size and systolic function. There is evidence of mild diastolic dysfunction of the left ventricle. Normal right ventricular size and function. Mild mitral regurgitation. Mild tricuspid regurgitation. No pulmonary hypertension. Left Ventricular Wall Motion: Rest Echo Findings All wall segments showed normal motion. Findings: Study Quality * Technically adequate exam. ECG Findings * Normal sinus rhythm. Left Ventricle * LVEF 60%. * Normal LV chamber size, wall thickness and function. * Mild left ventricular diastolic dysfunction. Left Atrium * Normal left atrial size. Mitral Valve * Normal mitral valve structure. * No mitral stenosis. * Mild mitral regurgitation. Tricuspid Valve * Normal tricuspid valve structure. * Mild tricuspid regurgitation. * Estimated RA pressure is 3 mmHg. * Estimated RVSP is 29 mmHg. * No pulmonary hypertension. Aortic Valve * Aortic valve not well visualized. * Trace aortic regurgitation. * No aortic stenosis. Right Ventricle * Normal right ventricular structure and function. Right Atrium * Normal right atrial size. Interatrial Septum * No evidence of PFO by color Doppler. Pulmonary Artery * Pulmonary artery not well visualized. IVC * Normal IVC dimensions and inspiratory collapse. Pericardium * There is no pericardial effusion present. Aorta * Not well visualized. Pulmonic Valve * Pulmonic valve is not well visualized. * No pulmonic stenosis. * No pulmonic regurgitation. History Hypertension Diabetes Measurements: BP: 150/ 67 2D Normal Values IVSd: .81 cm 0.6 - 1.0 cm LVIDd: 4.67 cm 3.7 - 5.6 cm LVPWd: .78 cm 0.6 - 1.1 cm LVIDs: 2.61 cm 1.5 - 3.6 cm AO: 2.20 cm < 4.0 cm LA: 3.60 cm 2.0 - 4.0cm %FS: 44.10 cm >25 % LA volume: 27 Mitral Valve Peak E:1.10 m/sec Peak A:1.30 m/sec E/A Ratio:0.8 Peak E' Lat Jean Pierre:5.84 cm/s Peak E' Med [place]:8.33 cm/s E/E' Lat Ratio:18.8 E/E' Med Ratio:13.2 Aortic Valve AI pressure Half-time: 679.00 msec Tricuspid Valve TV Regurg Peak Grad: 26.00mmHg TV Regurg Peak Jean Pierre: 2.56m/sec Updated by Crissy Rivera on 05/31/2016 10:34:44 AM electronically signed on 05/31/2016 10:37:56 AM with status of Final Wall Motion [place]: 1=Normal, 2=Hypokinesis, 3=Akinesis, 4=Dyskinesis, 5=Aneurysmal, 6=Hyperkinetic, X=Not Visualized (Blank)=Missing
--- NOTE | 2016-05-31 13:23 | Discharge Summary ---
<Girma Harris - Last Filed: 05/31/16 15:20> Date of Encounter: 05/31/16 Time of Encounter: 13:18 - Discharge Diagnosis (1) Coronary artery disease Priority: Primary Status: Acute Qualifiers: Qualified Code(s): I25.10 - Atherosclerotic heart disease of [place] coronary artery without angina pectoris (2) NSTEMI (non-ST elevated myocardial infarction) Priority: Secondary Status: Acute (3) Hypertension Priority: Secondary Status: Chronic Qualifiers: Hypertension type: essential hypertension Qualified Code(s): I10 - Essential (primary) hypertension (4) IDDM (insulin dependent diabetes mellitus) Priority: Secondary Status: Chronic - Discharge Medications Prescriptions: Nitroglycerin 0.4 mg SL Q5MIN PRN 30 Days PRN Reason: Chest Pain Clopidogrel [Plavix] 75 mg PO DAILY #30 tablet Metoprolol [Lopressor] 12.5 mg PO BID #60 tablet Simvastatin [Zocor] 40 mg PO HS 30 Days Home Medications: Aspirin Enteric Coated [Aspirin EC] 81 mg PO DAILY 05/30/16 [History] Insulin ASPART [Novolog Flexpen] 4 unit SQ HS 05/30/16 [History] Insulin ASPART [Novolog Flexpen] 4 units SQ TIDAC 05/30/16 [History] Insulin Glargine,Hum.rec.anlog [Lantus Solostar] 14 unit SQ HS 05/30/16 [History ] Levothyroxine [Levothyroxine Sodium] 137 mcg PO DAILY 05/30/16 [History] Clopidogrel [Plavix] 75 mg PO DAILY #30 tablet 05/31/16 [Rx] Losartan [Cozaar] 12.5 mg PO DAILY tablet 05/31/16 [Rx] Metoprolol [Lopressor] 12.5 mg PO BID #60 tablet 05/31/16 [Rx] Nitroglycerin 0.4 mg SL Q5MIN PRN 30 Days 05/31/16 [Rx] Simvastatin [Zocor] 40 mg PO HS 30 Days 05/31/16 [Rx] Allergies/Adverse Reactions: Allergies Penicillins Allergy (Verified 05/30/16 08:11) Rash Procedures/tests Complete & Pending: Procedures Performed prior 72 hours Category Date Time Status CL Cardiac Catheterization [CL] Routine Deputy Coroner Investigator 05/30/16 09:19 Completed ECG 12 lead ECG [ECG] AM 0600 Y 05/30/16 06:00 Completed EV echocardiogram Routine Y 05/30/16 20:23 Completed Date of admission: 05/29/16 22:59 Primary care physician: Shoshana Eng MD Consults: 05/30/16 07:45 Consult to Cardiology [CONS] Routine Comment: Consulting Provider: Cardiology Cathi Reason for Consult: NSTEMI Call Completed: No 05/30/16 09:23 Consult to Cardiac Rehabilitation-Phase1 [CONS] Routine Comment: Reason for Consult: NSTEMI Call Completed: No 05/30/16 12:22 Consult to Cardiac Rehabilitation-Phase1 [CONS] Routine Comment: Reason for Consult: post op cath Call Completed: Yes Discharging clinician: Girma Harris Anticipated date of discharge: 05/31/16 - Patient Status Disposition: Home, Self-Care Condition: Good Functional capacity at discharge: independent ambulation Overall status at discharge: patient is progressing back to baseline - Discharge Instructions Instructions: Metoprolol (By mouth), Nitroglycerin, Rapid Release (By mouth), Simvastatin (By mouth), Clopidogrel (By mouth), Left Heart Catheterization (DC) , Right Heart Catheterization (DC), Coronary Intravascular Stent Placement (DC) , Diabetes Mellitus Type 2 in Adults (DC), Meal Planning with Diabetes Exchanges (GEN), Chronic Hypertension (DC) Follow Up With: Shoshana Eng MD [Primary Care Provider] - Mariano Slater CNP [Advanced Practice Nurse] - 06/10/16 10:45 am Additional Instructions: RISK FACTORS: STOP SMOKING: If you smoke, STOP. Smoking or tobacco use significantly increases your risk of heart disease because nicotine causes the arteries to narrow or constrict. It also causes fats to stick to the artery. Your chances of having a heart attack are greatly increased if you continue to smoke. For more information, call the education line for smoking cessation 5-070-NDENWIW EAT A LOW FAT/CHOLESTEROL/SODIUM DIET: This diet may help reduce your chances of having a heart attack. LIFTING: Avoid lifting anything more than 10 pounds for 5-7 days Prior to straining, laughing, sneezing and/or coughing, apply manual pressure directly over insertion site. ACTIVITY: You may walk or climb stairs as tolerated You can resume sexual activity as tolerated In general, you are encouraged to engage in a minimum of 30 minutes or more of moderate intensity physical activity, such as brisk walking, daily or at least 3 -4 times weekly BATHING Do not submerge the site into water (bath tub, hot tub, swimming pool) for 1 week. This can be a source for infection into the blood stream. You may shower after 24 hours SITE CARE: After 24 hours, you may remove the dressing and leave the site open to air. Keep the site clean and dry. Clean gently and pat dry. You can expect bruising and tenderness that gradually resolve within a week or two. Return to work as instructed per your physician Resume driving as instructed per physician Keep all scheduled follow up appointments Resume medications as instructed IMPORTANT: If prescribed a Platelet Aggregation Inhibitor such as, Plavix, Brilinta or Effient: Duration of therapy is minimum one year These medications are often used in combination with Aspirin in prevention of future heart attacks Never discontinue unless consult with your Locator STROKE (CVA) Risk factors for a stroke are: Age, cigarette smoking, diabetes, excessive alcohol consumption, family history, high blood pressure, overweight, physical inactivity, prior stroke, heart attack, diagnosis of carotid artery stenosis or other artery disease. Warning signs: Sudden numbness or weakness of the face, arm or leg; especially on one side of the body, sudden confusion, trouble speaking or understanding, sudden trouble seeing in one or both eyes, sudden trouble walking, dizziness, loss of balance or coordination, sudden severe headache with no cause. Call 911 or go to the Emergency Room. CONGESTIVE HEART FAILURE: If you have been diagnosed with Congestive Heart Failure (CHF) and your symptoms return, make an appointment with your physician Weigh yourself daily. Notify your physician if you have a weight gain of two or more pounds in one day or five or more pounds in one week. If you experience any difficulty breathing, please call 911 BLEEDING: Although the risk of bleeding is minimal, it can happen. If you have any bleeding from the site, apply firm pressure above the puncture site for 10-15 minutes. If the bleeding does not stop, continue manual pressure and call 911 Contact your physician if: You develop a fever greater than 101 degrees Fahrenheit Your site becomes reddened or has any drainage You have an increase in pain or burning at the site or if a large knot forms at the site. If you experience chest pain, shortness of breath, dizziness, or extreme tiredness, stop the activity and rest. Please notify your physicians office if you experience any of these symptoms and they are not relieved by rest please call 911! - Diet and Activity Activity: increase activity as tolerated Diet: diabetic diet, low fat, low cholesterol Hospital course: Ms. Finley is a 65 year old female who was transferred from an outside hospital with NSTAMI. Should would undergo LHC and have 99% stenosis of the circumflex. A HUSSEIN was placed. Today she is symptom free and has no complaints. Vitals and labs have no major abnormalities. She dose have some mild stable anemia that should be followed up on as an outpatient. No clinical signs of bleeding at this time. she has a mild trend down but has been getting IV fluids and likely has dilutional components. She has agreed to and voiced back understanding plan. we will discharge her home today. she will follow up with her PCP and Cardiology in 1-2 weeks. - Time Spent with Patient Total time spent providing and/or coordinating discharge services: Less than 30 minutes - Constitutional Vitals: Temp Pulse Resp BP Pulse Ox 98.5 F 88 18 126/77 97 05/31/16 08:00 05/31/16 08:00 05/31/16 08:00 05/31/16 08:00 05/31/16 08:00 General appearance: Present: cooperative, A&O X 3, pleasant, no acute distress, answers questions appropriately - Head Head exam: Present: atraumatic, normocephalic - Eye Eye exam: Present: PERRL, conjuntiva pink, sclera anicteric Pupils: Present: PERRL - ENT ENT exam: Present: mucous membranes moist Additional comments: poor dentition - Neck Neck exam general surgery: Present: supple, trachea midline. Absent: lymphadenopathy - Respiratory Respiratory exam: Present: CTAB. Absent: accessory muscle use, rales, rhonchi, wheezes - Cardiovascular Cardiovascular exam: Present: RRR, +S1, +S2. Absent: diastolic murmur, gallop, rubs, systolic murmur - GI/Abdominal GI/Abdominal exam: Present: normal bowel sounds, soft, no peritoneal signs. Absent: distended, tenderness - Extremities Exam Extremities exam: Present: warm, radial pulses palpable and symetrical. Absent : calf tenderness, cyanotic, pedal edema - Neurological Exam Neurological exam: Present: oriented X3 - Skin Skin exam: Present: dry, intact - VTE Reasons for not Prescribing Prophylaxis: Not indicated-Anticoagulated or INR therapeutic <Evans Stoll - Last Filed: 05/31/16 18:22> - Discharge Diagnosis (1) NSTEMI (non-ST elevated myocardial infarction) Status: Acute (2) Hypertension Status: Chronic Qualifiers: Hypertension type: essential hypertension Qualified Code(s): I10 - Essential (primary) hypertension (3) IDDM (insulin dependent diabetes mellitus) Status: Chronic (4) DVT prophylaxis Status: Acute Procedures/tests Complete & Pending: Procedures Performed prior 72 hours Category Date Time Status CL Cardiac Catheterization [CL] Routine Deputy Coroner Investigator 05/30/16 09:19 Completed ECG 12 lead ECG [ECG] AM 0600 Y 05/30/16 06:00 Completed EV echocardiogram Routine Y 05/30/16 20:23 Completed Date of admission: 05/29/16 22:59 Primary care physician: Shoshana Eng MD Consults: 05/30/16 07:45 Consult to Cardiology [CONS] Routine Comment: Consulting Provider: Cardiology Cathi Reason for Consult: NSTEMI Call Completed: No 05/30/16 09:23 Consult to Cardiac Rehabilitation-Phase1 [CONS] Routine Comment: Reason for Consult: NSTEMI Call Completed: No 05/30/16 12:22 Consult to Cardiac Rehabilitation-Phase1 [CONS] Routine Comment: Reason for Consult: post op cath Call Completed: Yes Hospital course: Ms. Finley is a 65 year old female - Time Spent with Patient Total time spent providing and/or coordinating discharge services: - Constitutional Vitals: Temp Pulse Resp BP Pulse Ox 98.5 F 88 18 126/77 97 05/31/16 08:00 05/31/16 08:00 05/31/16 08:00 05/31/16 08:00 05/31/16 08:00 - Attending Attestation I examined this patient and my medical decision-making was reviewed with the [employer] MANAGER/PA/Advanced Practice Nurse/Resident Physician. I agree with the documented findings, disposition and treatment plan as described except to the extent set forth below.
--- NOTE | 2016-05-31 15:20 | Physician Discharge Referral ---
<Girma Harris - Last Filed: 05/31/16 15:20> Home Health/Hosp Referral Info Transfer to: Home Health Provider in Charge Post Discharge: PCP - Diagnosis (1) Coronary artery disease Status: Acute (2) NSTEMI (non-ST elevated myocardial infarction) Status: Acute (3) Hypertension Status: Chronic (4) IDDM (insulin dependent diabetes mellitus) Status: Chronic - Respiratory Orders Smoking Cessation: Smoking cessation has been advised. For more information, call the [place] Tobacco Quit Line at 5-697-IPOF-NOW. - Diet/Nutrition Diet/Nutrition Orders: Cardiac - Activity Activity Orders: Ambulate - Services Needed Following services are medically necessary services: Home Health Aide - Transfer Medications Prescriptions: Nitroglycerin 0.4 mg SL Q5MIN PRN 30 Days PRN Reason: Chest Pain Clopidogrel [Plavix] 75 mg PO DAILY #30 tablet Metoprolol [Lopressor] 12.5 mg PO BID #60 tablet Simvastatin [Zocor] 40 mg PO HS 30 Days Home Medications: Aspirin Enteric Coated [Aspirin EC] 81 mg PO DAILY 05/30/16 [History] Insulin ASPART [Novolog Flexpen] 4 unit SQ HS 05/30/16 [History] Insulin ASPART [Novolog Flexpen] 4 units SQ TIDAC 05/30/16 [History] Insulin Glargine,Hum.rec.anlog [Lantus Solostar] 14 unit SQ HS 05/30/16 [History ] Levothyroxine [Levothyroxine Sodium] 137 mcg PO DAILY 05/30/16 [History] Clopidogrel [Plavix] 75 mg PO DAILY #30 tablet 05/31/16 [Rx] Losartan [Cozaar] 12.5 mg PO DAILY tablet 05/31/16 [Rx] Metoprolol [Lopressor] 12.5 mg PO BID #60 tablet 05/31/16 [Rx] Nitroglycerin 0.4 mg SL Q5MIN PRN 30 Days 05/31/16 [Rx] Simvastatin [Zocor] 40 mg PO HS 30 Days 05/31/16 [Rx] Allergies/Adverse Reactions: Allergies Penicillins Allergy (Verified 05/30/16 08:11) Rash Certification: Further, I certify that my clinical findings support that this patient is homebound (i.e. absences from home require considerable and taxing effort and are for medical reasons or voodoo services or infrequently or short duration when for other reasons) because: Homebound Reason: Leaving home requires considerable and taxing effort due to condition, Severity of cardiac or pulmonary status limits activity tolerance Attestation: My signature below is to certify that this patient is under my care and that I, or nurse practitioner, or a physician's blacksmith assistant working with me, has a face-to -face encounter with this patient. <Evans Stoll P - Last Filed: 05/31/16 18:22> - Diagnosis (1) NSTEMI (non-ST elevated myocardial infarction) Status: Acute (2) Hypertension Status: Chronic (3) IDDM (insulin dependent diabetes mellitus) Status: Chronic (4) DVT prophylaxis Status: Acute - Respiratory Orders Smoking Cessation: Smoking cessation has been advised. For more information, call the [place] Tobacco Quit Line at 2-257-EIAU-NOW. Certification: Further, I certify that my clinical findings support that this patient is homebound (i.e. absences from home require considerable and taxing effort and are for medical reasons or voodoo services or infrequently or short duration when for other reasons) because: Attestation: My signature below is to certify that this patient is under my care and that I, or nurse practitioner, or a physician's blacksmith assistant working with me, has a face-to -face encounter with this patient.
== END 2016-05-31 17:04 | disposition home or self-care (01) | DRG 247 ==
LOC: 2NENU
PROVIDERS: ADMIT Internal Medicine; ATTEND Internal Medicine